=== PATIENT | male | born 1980 | race Caucasian/White ===

== ENCOUNTER 2017-10-01 19:23 | Emergency (ER) | payer OTHER ==
[~2017-10-01] VITALS: Ht 172.7 cm; Wt 95.7 kg
[2017-10-01 19:27] VITALS: Ht 172.7 cm; Wt 95.7 kg
--- NOTE | 2017-10-01 21:38 | ERD ---
ER Documentation Chief Complaint Chief Complaint Pt cut R great toe approx 1800 HPI 37-year-old male presents here to emergency department for complaints of a laceration wound on the plantar aspect of the right foot, actually got caught on a metal, got a skin avulsion, it was bleeding, was stopped immediately after pressure dressing at home. Patient's complaint of pain sharp pain, 6/10 scale, as was upon touching the area. Last tetanus immunization was 3 years ago. Patient denies any difficulty movement of the joint. Patient denies any fever or chills. Patient denies any discharge. ROS All systems reviewed and are negative except as per history of present illness. Medications Home Meds Active Scripts Ibuprofen* (Motrin*) 600 Mg Tab, 600 MG PO Q6H Y for PAIN AND OR ELEVATED TEMP, #30 TAB Prov:HALLEY CATALAN NP 10/01/17 Cephalexin* (Keflex*) 500 Mg Capsule, 500 MG PO QID for 5 Days, CAP Prov:HALLEY CATALAN NP 10/01/17 Reported Medications [none] Unknown Strength No Conflict Check 10/01/17 Allergies Allergies: Coded Allergies: No Known Allergy (Unverified , 10/01/17) PMhx/Soc Medical and Surgical Hx: pt denies Medical Hx, pt denies Surgical Hx FmHx Family History: No coronary disease, No diabetes, No other Physical Exam Vitals Vital Signs Date Time Temp Pulse Resp B/P Pulse Ox O2 Delivery O2 Flow Rate FiO2 10/01/17 19:27 98.3 69 16 134/70 100 Physical Exam GENERAL: The patient is well developed and appropriate for usual state of health, in no apparent distress. CHEST: Clear to auscultation bilaterally. There are no rales, wheezes or rhonchi. HEART: Regular rate and rhythm. No murmurs, clicks, rubs or gallops. No S3 or S4. ABDOMEN: Soft, nontender and nondistended. Good bowel sounds. No rebound or guarding. No gross peritonitis. No gross organomegaly or masses. No Silverman sign or McBurney point tenderness. BACK: No midline or flank tenderness. EXTREMITIES: Equal pulses bilaterally. There is no peripheral clubbing, cyanosis or edema. No focal swelling or erythema. Full range of motion. Grossly neurovascularly intact. NEURO: Alert and oriented. Cranial nerves 2-12 intact. Motor strength in all 4 extremities with 5/5 strength. Sensation grossly intact. Normal speech and gait. SKIN: Noted superficial skin avulsion on the plantar aspect of the right foot, just behind the right big toe. No joint involvement, no tendon involvement. There is no apparent rash or petechia. The skin is warm and dry. HEMATOLOGIC AND LYMPHATIC: There is no evidence of excessive bruising or lymphedema. No gross cervical, axillary, or inguinal lymphadenopathy. Procedures/MDM Procedure Note: After obtaining informed consent, the wound was irrigated with 250 ml of normal saline and cleaned with diluted betadine. Using aseptic technique, the wound was approximated using a dermabond. After the procedure, the wound was well approximated. Patient tolerated procedure well. Medical Decision Making: Patient's pain is most likely consistent with a skin avulsion laceration wound which was repaired with Dermabond and Steri-Strips.. There is no suspicion for neurovascular compromise. Patient has intact sensation and circulation of the affected extremity. There is low suspicion for septic arthritis. Patient does not have any fever. Radiology exams not indicated at this time. Disposition: Home. Patient is given prescription for ibuprofen for pain, Keflex. Patient was advised to elevate the affected area and apply ice on affected area. Patient was advised that if symptoms are worse, numbness, tingling, high fever, unable to move joint, worsening symptoms, to return to emergency department immediately. Otherwise, patient is advised to follow up with the primary care doctor in 5-7 days for reevaluation of symptoms. Disclaimer: Inadvertent spelling and grammatical errors are likely due to EHR/ dictation software use and do not reflect on the overall quality of patient care. Also, please note that the electronic time recorded on this note does not necessarily reflect the actual time of the patient encounter. Departure Diagnosis: Primary Impression: Foot laceration Encounter type: initial encounter Laterality: right Qualified Code: S91.311A - Laceration of right foot, initial encounter Condition: Stable Additional Instructions: Patient is given prescription for ibuprofen for pain, Keflex. Patient was advised to elevate the affected area and apply ice on affected area. Patient was advised that if symptoms are worse, numbness, tingling, high fever, unable to move joint, worsening symptoms, to return to emergency department immediately. Otherwise, patient is advised to follow up with the primary care doctor in 5-7 days for reevaluation of symptoms. HALLEY CATALAN. MIGUEL Oct 01, 2017 21:38
[2017-10-01] MEDS ORDERED: IBUP-1542 PO (22:02)
[2017-10-01] MEDS ORDERED: CEPH-443 PO (22:02)
== END 2017-10-01 22:17 | disposition home or self-care (01) ==
LOC: FTE 19:23
DX: S91.311A Laceration without foreign body, right foot, initial encounter (principal); W23.1XXA Caught, crushed, jammed, or pinched between stationary objects, initial encounter; Y92.9 Unspecified place or not applicable
CPT/HCPCS: 12001; Z7502